=== PATIENT | male | born 1960 | race Caucasian/White ===

== ENCOUNTER → 2023-07-26 08:32 | Outpatient (REF) | payer OTHER, SELFPAY | LOC: DHCBC MAIN 08:32 | PROVIDERS: ATTENDING PHYSICIAN Internal Medicine Cardiovascular Disease; FAMILY PHYSICIAN Family Medicine | DX: I10 Essential (primary) hypertension (principal); I49.1 Atrial premature depolarization | CPT/HCPCS: 93306 ==